=== PATIENT | female | born 1955 | race Caucasian/White ===

== ENCOUNTER 2017-07-30 11:14 | Emergency (ER) | payer OTHER ==
[~2017-07-30] VITALS: Ht 167.6 cm; Wt 72.5 kg
[2017-07-30 11:16] VITALS: BP 160/71; PULSE 77; RESP 16; TEMP 98.6; O2SAT 99
--- NOTE | 2017-07-30 12:15 | RADRPT ---
EXAM DATE/TIME: 07/30/2017 11:49 [place] COMPARISON: No previous studies available for comparison. INDICATIONS : Right ankle pain on medial and lateral malleoli after fall. MEDICAL HISTORY : None. SURGICAL HISTORY : None. ENCOUNTER: Initial ACUITY: 1 day PAIN SCORE: 9/10 LOCATION: Right ankle FINDINGS: There is fairly diffuse soft tissue swelling around the ankle. There is a small well-corticated bone fragment just inferior to the medial malleolus. This probably represents an old avulsion injury. No d efinite acute fracture is identified. The bony mineralization is within normal limits. CONCLUSION: 1. Diffuse soft tissue swelling. 2. Probable old avulsion injury off the medial malleolus. Franky Chan MD on July 30, 2017 at 12:12 Board Certified Radiologist. This report was verified electronically.
--- NOTE | 2017-07-30 12:23 | PD ---
HPI Chief Complaint: Injury Time Seen by Provider: 11:46 Travel History International Travel<30 days: No Contact w/Intl Traveler<30days: No Traveled to known affect area: No History of Present Illness HPI Patient was emergency department complaining of right ankle pain that began last night around midnight. Patient states she just got in town visiting her cousin when she got to her cousin's house she misstepped causing her to fall twisting her ankle. Patient complaining of pain primarily over the lateral aspect of the right ankle that radiates to the medial aspect and distally. Pain is worse with walking and palpation. Patient reports applying ice with minimal relief of symptoms. Denies any numbness or tingling. Denies hitting her head or loss of consciousness. Patient reports she has been using her cousins walker to help get around. Denies any numbness or tingling. Symptoms mild. PFSH Past Medical History Musculoskeletal: Yes (Rheumatoid arthritis) ?: Not Social History Alcohol Use: Yes (social) Tobacco Use: No Substance Use: No Allergies-Medications (Allergen,Severity, Reaction): Coded Allergies: penicillin G (Verified Allergy, Severe, Rash, 07/30/17) Review of Systems Except as stated in HPI: all other systems reviewed are Neg Physical Exam Narrative GENERAL: Well-developed, well nourished, in no acute distress, and non-ill appearing. SKIN: Focused skin assessment warm and dry. HEAD: Atraumatic. Normocephalic. EYES: Pupils equal and round. EOMI. No scleral icterus. No injection or drainage. ENT: No nasal bleeding or discharge. Mucous membranes pink and moist. NECK: Trachea midline. Supple. No nuclear rigidity. CARDIOVASCULAR: Dorsal pulses 2+, intact, and equal bilaterally. Capillary refill less than 2 seconds. RESPIRATORY: No accessory muscle use. No respiratory distress. MUSCULOSKELETAL: No obvious deformities. No clubbing. No cyanosis. No edema. Full range of motion. Ankle: Neagative anterior draw and Hightower test. Negative Julee's sign. No laxity noted with passive inversion and eversion of BL ankles. Negative squeeze test. Pulses equal BL distal to injury. Capillary refill less than 2 seconds distal to injury and equal BL. Sensation equal BL 1st web space. FROM of toes distal to injury and equal BL. NV intact distal to injury and equal BL. Dorsal pulses equal BL. Patient reports point tenderness over lateral aspect of right ankle. No tenderness over medial aspect. No crepitus. Soft tissue swelling noted over lateral aspect of right ankle. NEUROLOGICAL: Awake and alert. No obvious cranial nerve deficits. Motor grossly within normal limits. Normal speech. PSYCHIATRIC: Appropriate mood and affect; insight and judgment normal. Data Data Last Documented VS Vital Signs Date Time Temp Pulse Resp B/P (MAP) Pulse Ox O2 Delivery O2 Flow Rate FiO2 07/30/17 11:16 98.6 77 16 160/71 (100) 99 Orders Orders Ankle, Complete ([id number]) (07/30/17 ) Ice/Cold Pack (07/30/17 11:47) Ed Discharge Order (07/30/17 12:19) Splint Or Brace Apply/Monitor (07/30/17 12:19) [employer] Request For Service (07/30/17 12:19) Crutches (07/30/17 12:29) MDM Medical Decision Making Medical Screen Exam Complete: Yes Emergency Medical Condition: Yes Interpretation(s) Last Impressions Ankle X-Ray 07/30/17 0000 Signed Impressions: Service Date/Time: Sunday, July 30, 2017 11:49 - CONCLUSION: 1. Diffuse soft tissue swelling. 2. Probable old avulsion injury off the medial malleolus. Franky Chan MD Differential Diagnosis Fracture, sprain, dislocation, contusion Narrative Course There is no clinical evidence for fracture. There is no clinical evidence to suspect bony injury by exam. Radiographic examination revealed no fracture seen at this time. No obvious ligamental injury or internal derangement is noted at this time. The distal extremity appears neurovascularly intact, without evidence of neurovascular injury nor compartment syndrome. Tendon exam also was intact. The effected limb was splinted. The patient was discharged with sprain and splint care instructions and given warnings for vascular compromise. The patient is to follow up with Orthopedics. The patient agrees with plan. Patient in no obvious distress upon re-evaluation. All pertinent Radiology result(s) discussed with patient. Any questions/concerns in reference to patient diagnosis/condition discussed and clarified prior to patient's discharge. Reinforced sheer importance of close follow up with patient's primary physician or primary care clinic. Instructed patient to return to ED immediately, if symptoms return/worsen. Patient showed understanding of above instructions. Further instructions and recommendations were detailed in discharge paperwork. Patient ambulated without difficulty out of ED at discharge. Diagnosis Primary Impression: Right ankle sprain Qualified Codes: S93.401A - Sprain of unspecified ligament of right ankle, initial encounter Referrals: Brayden Burr Jr., MD Patient Instructions: Ankle Exercises (GEN), Ankle Sprain (ED), Ankle Stirrup Splint (ED), General Instructions Additional Instructions: Follow-up with your primary care physician and/or orthopedic in 3-5 days for reevaluation. Apply ice to affected area 20 minutes prior as needed for pain. Elevate affected area to decrease pain and swelling. Wear splint for support while awake until reevaluated. Use [id number] Tylenol as needed for additional pain control. Follow instructions on the packaging. Return to the emergency department if symptoms get worse. Disposition: 01 DISCHARGE HOME Condition: Stable Dave vAiles Jul 30, 2017 12:23
== END 2017-07-30 12:49 | disposition home or self-care (01) ==
LOC: NEPD 11:14
DX: S93.401A Sprain of unspecified ligament of right ankle, initial encounter (principal); M06.9 Rheumatoid arthritis, unspecified; W18.30XA Fall on same level, unspecified, initial encounter; X50.1XXA Overexertion from prolonged static or awkward postures, initial encounter; Z88.0 Allergy status to penicillin
CPT/HCPCS: 73610; 99283; E0113; L1906